=== PATIENT | female | born 1955 | race Caucasian/White ===

== ENCOUNTER 2016-12-18 18:42 | Emergency (ER) | payer OTHER ==
[~2016-12-18] VITALS: Ht 149.9 cm; Wt 68.0 kg
[2016-12-18 19:19] VITALS: BP 133/62; PULSE 71; RESP 18; TEMP 98.8; O2SAT 98
[2016-12-18 19:23] VITALS: O2SAT 97
--- NOTE | 2016-12-18 19:28 | PD ---
HPI Chief Complaint: Abdominal Pain Time Seen by Provider: 19:13 Travel History International Travel<30 days: No Contact w/Intl Traveler<30days: No Traveled to known affect area: No History of Present Illness HPI 61yo F with PMH of lung CA, hernia presents to the ED with c/o epigastric abdominal pain, nausea, NBNB vomiting and nonbloody diarrhea since eating [place] food 2 days ago. States pain is constant and worst after PO intake. Denies any fever, chest pain, sob, dysuria, hematuria, vaginal bleeding or discharge. PFSH Past Medical History ?: Not Past Surgical History Hysterectomy: Yes Social History Tobacco Use: No Allergies-Medications (Allergen,Severity, Reaction): Coded Allergies: Codeine (Verified Allergy, Intermediate, Nausea/Vomiting, 12/18/16) Reported Meds & Prescriptions Reported Meds & Active Scripts Active Zofran Odt (Ondansetron Odt) 4 Mg Tab 4 Mg SL Q12HR PRN Tylenol (Acetaminophen) 325 Mg Tab 650 Mg PO Q6H PRN Nitrofurantoin Monohydrate Macrocrystals (Nitrofurantoin Monoh/Nitrofur Macro) 100 Mg Cap 100 Mg PO BID 5 Days Review of Systems Except as stated in HPI: all other systems reviewed are Neg Physical Exam Narrative GENERAL: 61yo F in moderate distress. SKIN: Focused skin assessment warm/dry. HEAD: Atraumatic. Normocephalic. EYES: Pupils equal and round. No scleral icterus. No injection or drainage. ENT: No nasal bleeding or discharge. Mucous membranes pink and moist. NECK: Trachea midline. No JVD. CARDIOVASCULAR: Regular rate and rhythm. No murmur appreciated. RESPIRATORY: No accessory muscle use. Clear to auscultation. Breath sounds equal bilaterally. GASTROINTESTINAL: Abdomen soft, +TTP epigastric region. No rebound tenderness or guarding. MUSCULOSKELETAL: No obvious deformities. No clubbing. No cyanosis. No edema. NEUROLOGICAL: Awake and alert. No obvious cranial nerve deficits. Motor grossly within normal limits. Normal speech. PSYCHIATRIC: Appropriate mood and affect; insight and judgment normal. Data Data Last Documented VS Vital Signs Date Time Temp Pulse Resp B/P Pulse Ox O2 Delivery O2 Flow Rate FiO2 12/18/16 22:38 72 18 97 12/18/16 22:36 134/64 Room Air 12/18/16 19:19 98.8 Orders Complete Blood Count With Diff (12/18/16 19:21) Comprehensive Metabolic Panel (12/18/16 19:21) Lipase (12/18/16 19:21) Prothrombin Time / Inr (Pt) (12/18/16 19:21) Act Partial Throm Time (Ptt) (12/18/16 19:21) Urinalysis - C+S If Indicated (12/18/16 19:21) Ct Abd/Pel W Iv Contrast(Rout) (12/18/16 19:21) Iv Access Insert/Monitor (12/18/16 19:21) Ecg Monitoring (12/18/16 19:21) Oximetry (12/18/16 19:21) Ondansetron Inj (Zofran Inj) (12/18/16 19:30) Sodium Chloride 0.9% Flush (Ns Flush) (12/18/16 19:30) Electrocardiogram (12/18/16 19:21) Ketorolac Inj (Toradol Inj) (12/18/16 19:30) Urine Culture (12/18/16 19:30) Iohexol 350 Inj (Omnipaque 350 Inj) (12/18/16 20:44) Labs Laboratory Tests Test 12/18/16 12/18/16 19:30 19:40 Urine Color YELLOW Urine Turbidity CLEAR Urine pH 7.0 Urine Specific [place] 1.017 Urine Protein NEG mg/dL Urine Glucose (UA) NEG mg/dL Urine Ketones 15 mg/dL Urine Occult Blood NEG Urine Nitrite NEG Urine Bilirubin NEG Urine Leukocyte Esterase NEG Urine RBC 0-2 /hpf Urine WBC 9-14 /hpf Urine Squamous Epithelial 0-5 /hpf Cells Urine Bacteria OCC /hpf Microscopic Urinalysis Comment CULTURE INDICATED White Blood Count 7.9 TH/MM3 Red Blood Count 4.68 MIL/MM3 Hemoglobin 13.4 GM/DL Hematocrit 39.9 % Mean Corpuscular Volume 85.4 FL Mean Corpuscular Hemoglobin 28.7 PG Mean Corpuscular Hemoglobin 33.6 % Concent Red Cell Distribution Width 12.9 % Platelet Count 208 TH/MM3 Mean Platelet Volume 8.8 FL Neutrophils (%) (Auto) 69.0 % Lymphocytes (%) (Auto) 23.5 % Monocytes (%) (Auto) 6.3 % Eosinophils (%) (Auto) 0.5 % Basophils (%) (Auto) 0.7 % Neutrophils # (Auto) 5.5 TH/MM3 Lymphocytes # (Auto) 1.8 TH/MM3 Monocytes # (Auto) 0.5 TH/MM3 Eosinophils # (Auto) 0.0 TH/MM3 Basophils # (Auto) 0.1 TH/MM3 CBC Comment DIFF FINAL Differential Comment Prothrombin Time 10.7 SEC Prothromb Time International 1.0 RATIO Ratio Activated Partial 26.6 SEC Thromboplast Time Sodium Level 142 MEQ/L Potassium Level 3.6 MEQ/L Chloride Level 108 MEQ/L Carbon Dioxide Level 24.8 MEQ/L Anion Gap 9 MEQ/L Blood Urea Nitrogen 11 MG/DL Creatinine 0.57 MG/DL Estimat Glomerular Filtration 109 ML/MIN Rate Random Glucose 89 MG/DL Calcium Level 9.4 MG/DL Total Bilirubin 0.6 MG/DL Aspartate Amino Transf 14 U/L (AST/SGOT) Alanine Aminotransferase 17 U/L (ALT/SGPT) Alkaline Phosphatase 59 U/L Total Protein 7.0 GM/DL Albumin 3.8 GM/DL Lipase 181 U/L [facility] Medical Decision Making Medical Screen Exam Complete: Yes Emergency Medical Condition: Yes Differential Diagnosis Gastroenteritis vs. peptic ulcer disease vs. pancreatitis vs. colitis Narrative Course 61yo F with abdominal pain, vomiting and diarrhea after eating [place]ol[place] food. Labs reviewed, no leukocytosis. CMP unremarkable. Lipase normal. UA showed WBC 9-14. Occasional bacteria. Culture indicated. Will treat with antibiotics. Pt given toradol and zofran. CTa/p showed no acute abnormality. VS stable. Pt tolerating PO. Return precautions given. Diagnosis Primary Impression: UTI (urinary tract infection) Qualified Code: N39.0 - Urinary tract infection without hematuria, site unspecified Patient Instructions: General Instructions Departure Forms: Tests/Procedures Additional Instructions: Please follow up with your PMD in 3-7 days. Return to the ED if symptoms worsen. Med/Other Pt SpecificInfo: Prescription(s) given Scripts Ondansetron Odt (Zofran Odt)4 Mg Tab4 Mg SL Q12HR PRN (Nausea/Vomiting) #6 TAB Ref 0 Prov:Elise Lopez DO 12/18/16 Acetaminophen (Tylenol)325 Mg [id number] Mg PO Q6H PRN (PAIN SCALE 1 TO 6) #20 TAB Ref 0 Prov:Elise Lopez DO 12/18/16 Nitrofurantoin Monohydrate Macrocrystals 100 Mg [id number] Mg PO BID 5 Days Ref 0 Prov:Elise Lopez DO 12/18/16 Disposition: 01 DISCHARGE HOME Condition: Stable Elise Lopez DO Dec 18, 2016 19:28
[2016-12-18] MEDS ORDERED: SODIUM CHLORIDE 0.9% FLUSH 10 ML FLUSH IV FLUSH PRN (19:30)
[2016-12-18] MEDS ORDERED: KETOROLAC TROMETHAMINE 30 MG/ML (IVP) VIAL IVP ONE (19:30)
[2016-12-18] MEDS ORDERED: ONDANSETRON HCL 4 MG/2 ML VIAL IVP ONE (19:30)
[2016-12-18 19:51] LABS: BLOOD, URINE NEG (NEG); GLUCOSE,URINE NEG (NEG); KETONE, URINE 15 mg/dL (NEG); NITRITE,URINE NEG (NEG)
[2016-12-18 19:53] LABS: AUTOMATED NEUTROPHIL # 5.5 TH/MM3 (1.8-7.7); BASOPHIL # 0.1 TH/MM3 (0-0.2); BASOPHIL % 0.7 % (0.0-2.0); EOSINOPHIL % 0.5 % (0.0-4.0); HEMATOCRIT 39.9 % (35.0-46.0); HEMO FLAGS DIFF FINAL; LYMPH % 23.5 % (9.0-44.0); LYMPHOCYTE # 1.8 TH/MM3 (1.0-4.8); MEAN CELL VOLUME 85.4 FL (80.0-100.0); MEAN CORPUSCULAR HEMOGLOBIN 28.7 PG (27.0-34.0); MEAN CORPUSCULAR HGB CONC 33.6 % (32.0-36.0); MONO % 6.3 % (0.0-8.0); PLATELET COUNT 208 TH/MM3 (150-450); RED BLOOD COUNT 4.68 MIL/MM3 (4.00-5.30); RED CELL DISTRIBUTION WIDTH 12.9 % (11.6-17.2); WHITE BLOOD COUNT 7.9 TH/MM3 (4.0-11.0)
[2016-12-18 19:59] LABS: BACTERIA, URINE OCC /hpf; RBC, URINE 0-2 /hpf (0-3); SQUAMOUS EPITHELIAL CELL URINE 0-5 /hpf (0-5); URINE COLOR YELLOW (YELLW/STRAW)
[2016-12-18 20:00] LABS: CHLORIDE 108 MEQ/L (98-107); POTASSIUM 3.6 MEQ/L (3.5-5.1); SODIUM (NA) 142 MEQ/L (136-145)
[2016-12-18 20:00] LABS: COMMENT (UR) CULTURE INDICATED; CULTURE IF INDICATED CULTURE INDICATED
[2016-12-18 20:04] LABS: ANION GAP 9 MEQ/L (5-15); BICARBONATE 24.8 MEQ/L (21.0-32.0); BLOOD UREA NITROGEN 11 MG/DL (7-18)
[2016-12-18 20:06] LABS: APTT (PATIENT) 26.6 SEC (24.3-30.1); PROTHROMBIN TIME - PATIENT 10.7 SEC (9.8-11.6)
[2016-12-18 20:07] LABS: ALT (GPT) 17 U/L (10-53); AST (GOT) 14 U/L (15-37); GLOMERULAR FILTRATION RATE 109 ML/MIN (>89)
[2016-12-18 20:09] LABS: TOTAL BILIRUBIN ADULT 0.6 MG/DL (0.2-1.0)
[2016-12-18 20:10] LABS: ALKALINE PHOSPHATASE 59 U/L (45-117)
[2016-12-18] MEDS ORDERED: IOHEXOL 350 MG/ML 10 ML VIAL (for RAD DIAG) IV ONE (20:44)
--- NOTE | 2016-12-18 21:13 | RADRPT ---
EXAM DATE/TIME: 12/18/2016 20:23 [facility] COMPARISON: No previous studies available for comparison. INDICATIONS : Abdominal pain for 2 days. Vomiting IV CONTRAST: 95 cc Omnipaque 350 (iohexol) IV ORAL CONTRAST: No oral contrast ingested. RADIATION DOSE: 12.01 CTDIvol (mGy) MEDICAL HISTORY : Carcinoma, lung. SURGICAL HISTORY : Tonsillectomy. Hysterectomy.Laminectomy, hip replacement ENCOUNTER: Initial ACUITY: 2 days PAIN SCALE: 8/10 LOCATION: abdominal TECHNIQUE: Volumetric scanning of the abdomen and pelvis was performed. Using automated exposure control and ad justment of the mA and/or kV according to patient size, radiation dose was kept as low as reasonably achievable to obtain optimal diagnostic quality images. DICOM format image data is available electro nically for review and comparison. FINDINGS: LOWER LUNGS: The visualized lower lungs are clear. LIVER: Homogeneous density without lesion. There is no dilation of the biliary tree. No calcified gallston es. SPLEEN: Normal size without lesion. PANCREAS: Within normal limits. KIDNEYS: Normal in size and shape. 5 cm mid zone cyst on the right. There is no solid mass, stone or hydroneph rosis. ADRENAL GLANDS: Within normal limits. VASCULAR: There is no aortic aneurysm. BOWEL/MESENTERY: The stomach, small bowel, and colon demonstrate no acute abnormality. There is no free intraperitone al air or fluid. ABDOMINAL WALL: Within normal limits. RETROPERITONEUM: There is no lymphadenopathy. BLADDER: No wall thickening or mass. REPRODUCTIVE: Within normal limits. INGUINAL: There is no lymphadenopathy or hernia. MUSCULOSKELETAL: No acute bony abnormality demonstrated. Previous lower lumbar fusion and right hip arthroplasty. CONCLUSION: No acute abnormality demonstrated. Liang Ochoa MD on December 18, 2016 at 21:10 Board Certified Radiologist. This report was verified electronically.
[2016-12-18 21:18] VITALS: BP 130/66; PULSE 74; RESP 18; O2SAT 97
[2016-12-18] MEDS ORDERED: TYLE325T PO (21:41)
[2016-12-18] MEDS ORDERED: NITR100C4 PO (21:41)
[2016-12-18] MEDS ORDERED: ZOFR4TAB3 SL (22:25)
[2016-12-18 22:36] VITALS: BP 134/64; PULSE 72; RESP 18; O2SAT 97
--- NOTE | 2016-12-19 12:41 | EKG ---
Date Performed: 12/18/2016 Time Performed: 19:29:45 PTAGE: 61 years EKG: Sinus rhythm NORMAL ECG NO PREVIOUS TRACING DOCTOR: Tor Lieberman Interpretating Date/Time 12/19/2016 12:39:12
== END 2016-12-18 22:38 | disposition home or self-care (01) ==
LOC: PHED 18:42
DX: N39.0 Urinary tract infection, site not specified (principal); R11.10 Vomiting, unspecified; R19.7 Diarrhea, unspecified
CPT/HCPCS: 74177; 80053; 81001; 83690; 85025; 85610; 85730; 87086; 93005; 96374; 96375; 99285; J1885; J2405; Q9967